=== PATIENT | male | born 1945 | race Caucasian/White ===

== ENCOUNTER → 2017-07-07 | Outpatient (CLI) | payer OTHER | LOC: BRMIMAGING 11:05 | PROVIDERS: ATTEND Internal Medicine Hematology & Oncology | DX: Z13.820 Encounter for screening for osteoporosis (principal); M85.80 Other specified disorders of bone density and structure, unspecified site; C90.00 Multiple myeloma not having achieved remission ==

== ENCOUNTER → 2019-01-29 | Outpatient (CLI) | payer OTHER | LOC: FIMAGING 11:43 | PROVIDERS: ATTEND Internal Medicine Hematology & Oncology | DX: R05 Cough (principal); C90.01 Multiple myeloma in remission | CPT/HCPCS: 82784-90; 86334-90; 86765-90 ==